=== PATIENT | male | born 1950 | race Caucasian/White ===

== ENCOUNTER 2017-10-14 07:12 | Day surgery (SDC) | payer OTHER ==
[~2017-10-14 07:12] MED LIST: ALBAFORT325 ( 65 ); FINASTERIDE5 MG PO; FOLIC + B12 TAB1 TAB; HIBICLENS118 ML TP; IBRERSANTAN PO; IRBESARTAN-HCT1 EAC1 PO; LEVAQUIN500 MG PO; MIRALAX510 GM; NUPERCAINAL60 GM RC; PERCOCET 5/3251 TAB PO; PROSCAR5 MG; RECTICARE30 GM TP; TANSULOSIN PO; ZOCOR20 MG PO
== END 2017-10-14 10:50 | disposition home or self-care (01) ==
LOC: AMB-ENDOS 07:12
DX: D12.2 Benign neoplasm of ascending colon (principal); K57.30 Diverticulosis of large intestine without perforation or abscess without bleeding; K60.3 Anal fistula